=== PATIENT | male | born 1945 | race Caucasian/White ===

== ENCOUNTER 2024-02-29 12:24 | Outpatient (CLI) | payer MEDICARE, BC, SELFPAY | END 2024-02-29 12:25 | disposition home or self-care (01) | PROVIDERS: PCP Nurse Practitioner Family; Visit Provider Nurse Practitioner Family | DX: M25.461 Effusion, right knee (principal); A69.20 Lyme disease, unspecified | CPT/HCPCS: 80053; 84550; 85651; 86140; 86618 ==

== ENCOUNTER 2024-06-11 06:45 | Day surgery (SDC) | payer MEDICARE, BC, SELFPAY ==
[2024-06-11 07:04] VITALS: BMI 27.2
[2024-06-11 07:25] VITALS: BP 206/108
[2024-06-11 07:28] VITALS: BP 194/102; PULSE 61; RESP 16; TEMP 36.9; O2SAT 97
[2024-06-11 07:42] VITALS: BP 193/104
[2024-06-11] MEDS: LACTATED RINGERS 1000 ML 1,000 ML 100 ML IV (08:00)
[2024-06-11] MEDS: SODIUM CHLORIDE 0.9 % (FLUSH) 10 ML SYRINGE IVF (08:00)
[2024-06-11 08:02] VITALS: BP 194/109
[2024-06-11 08:16] VITALS: BP 202/114
--- NOTE | 2024-06-11 08:38 | SUR.PREOP ---
Anesthesia aware of high blood pressures, spoke with patient and cancelled surgery. Wants patient to be stable prior to surgery. Instructed patient to establish primary provider to work with high blood pressures.
--- NOTE | 2024-06-11 11:05 | SUR.PREOP ---
Patient left unit at 0850. Will reschedule surgery after BP is under control.
== END 2024-06-11 08:50 | disposition home or self-care (01) ==
LOC: OR 06:47
PROVIDERS: Visit Provider Orthopaedic Surgery
PROC: (CPT 27340; principal; 2024-06-11 11:45)
DX: Z53.09 Procedure and treatment not carried out because of other contraindication (principal); M25.561 Pain in right knee; I10 Essential (primary) hypertension
CPT/HCPCS: J3010; J7120

== ENCOUNTER 2024-07-16 08:57 | Day surgery (SDC) | payer MEDICARE, BC, SELFPAY ==
[2024-07-16] VITALS (11 sets, daily range): BP systolic 121–163; BP diastolic 61–107; PULSE 48–59; RESP 16; TEMP 36.1–36.6; O2SAT 93–100; BMI 27.6
[2024-07-16] MEDS: SODIUM CHLORIDE 0.9 % (FLUSH) 10 ML SYRINGE IVF (09:20)
[2024-07-16] MEDS: LACTATED RINGERS 1000 ML 1,000 ML 100 ML IV (09:20)
--- NOTE | 2024-07-16 12:01 | W.ANESCHARGE ---
Anesthesia Charges Start Date/Time Anesthesia Start Date: 07/16/24 Anesthesia Start Time: 11:21 Stop Date/Time Anesthesia Stop Date: 07/16/24 Anesthesia Stop Time: 13:35 Summary Extremes of Age - Over 70 or under 1: MDA
--- NOTE | 2024-07-16 13:10 | PM.ORPRC ---
Procedure Note Date of procedure: 07/16/24 Procedure: PREOPERATIVE DIAGNOSIS: Bilateral knee aseptic prepatellar bursitis POSTOPERATIVE DIAGNOSIS: Bilateral knee aseptic prepatellar bursitis NAME OF OPERATION: Left knee prepatellar bursa aspiration, right knee prepatellar bursectomy SURGEON: Shantanu Almaraz MD [employer] OPERATOR: Mora Hernandez PA-C ANESTHESIA: Spinal ESTIMATED BLOOD LOSS: 0 mL COMPLICATIONS: None SPECIMENS: Sent for gross and microscopic pathology labeled right knee prepatellar bursa DRAINS: None PREOPERATIVE ANTIBIOTICS: Ancef 2 gram INDICATIONS: The patient is a 78-year-old with a history of bilateral knee aseptic prepatellar bursitis. Despite appropriate nonoperative management, including activity modification, antiinflammatories, [id number] pain medication, bracing, physical therapy, and injections they continue to have pain and disability. Operative intervention was offered. The risks, benefits and expected outcomes were discussed in detail. These included but were not limited to: Infection, bleeding, injury to blood vessel or nerve, venous thromboembolism. All questions were answered to their satisfaction. PROCEDURE: Spinal anesthesia was administered. The patient was placed supine on the operating room table. The left knee was sterilely prepped. A 16 gauge needle was placed in the prepatellar bursa and 20 mL of clear, yellow fluid was aspirated. Attention was then turned to the right knee. It was prepped and draped in the usual sterile fashion. The limb was exsanguinated with the Anthony bandage. The pneumatic tourniquet was inflated to 300 mmHg. A standard anterior, midline incision was made over the patella. Subcutaneous dissection was sharply taken to the prepatellar bursa. It was markedly thickened and was densely adherent to all of the surrounding soft tissues. It was difficult to find a tissue plane between soft tissues and the bursa. Some of the bursa was excised and sent for gross and microscopic pathology labeled right knee prepatellar bursa. Sharp dissection was carried down to the quads tendon. We then carried the dissection distally in the plane between the prepatellar bursa and fascia over the extensor mechanism. We aggressively excised all of the bursa. The patella and extensor mechanism is all intact. We debrided the anterior cortex of the patella with the curette and rongeur. Week standard our incision distally over the superficial infrapatellar bursa and excised it as well as it was markedly thickened. We irrigated the wound with normal saline. We then closed the skin down to the deep soft tissue with 2-0 Vicryl. Subcutaneous tissues reapproximated with a 2-0 Stratafix. Skin was closed with a 3-0 Monocryl and glue. A dressing was applied. The tourniquet was released. Sponge and needle counts were correct x2. The patient tolerated the procedure well. There were no apparent complications. They were carefully transferred to the hospital bed and taken to the postanesthesia care unit in satisfactory condition. PLAN: The patient will be discharged to home. They may weightbear as tolerates. Range of motion will be unrestricted. They will follow up in the office next week for a wound check.
--- NOTE | 2024-07-16 13:39 | W.ANESCHARGE ---
Anesthesia Charges Start Date/Time Anesthesia Start Date: 07/16/24 Anesthesia Start Time: 11:21 Stop Date/Time Anesthesia Stop Date: 07/16/24 Anesthesia Stop Time: 13:35
[2024-07-16] MEDS: ACETAMINOPHEN 500 MG TABLET 1000 MG PO (14:34)
== END 2024-07-16 14:41 | disposition home or self-care (01) ==
PROVIDERS: Visit Provider Orthopaedic Surgery
PROC: (CPT 27340; principal; 2024-07-16 10:30)
DX: M70.41 Prepatellar bursitis, right knee (principal); M70.42 Prepatellar bursitis, left knee
CPT/HCPCS: 27340; 20600; 01320; 88304; 99100; A9270; J1100; J2405; J2704; J3010; J7120